=== PATIENT | female | born 1955 ===

== ENCOUNTER 2017-01-01 16:26 | Emergency (ER) | payer BC ==
--- NOTE | 2017-01-01 17:30 | EDM.PDOC ---
ED HPI GENERAL MEDICAL PROBLEM - General Chief Complaint: Lower Extremity Injury/Pain Stated Complaint: L LEG BLEEDING/VERICOSE VEIN Time Seen by Provider: 01/01/17 16:58 Source of Information: Reports: Patient, RN Notes Reviewed - History of Present Illness INITIAL COMMENTS - FREE TEXT/NARRATIVE: 61-year-old lady has come in with bleeding varicosity left distal leg. She states that she has had a varicosity there for some time. She accidentally scratched at it a short time ago with onset of pulsatile bleeding. UnAble to control that at home with pressure and time and therefore have come in for further treatment. They wrapped it with a towel on the way here to the ED and upon arrival to the ED the bleeding has stopped. She is not on any type of blood thinner. She did take several Advil earlier today. No other unusual symptoms at this time. 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 - Related Data Allergies Allergy/AdvReac Type Severity Reaction Status Date / Time No Known Allergies Allergy Verified 01/01/17 16:41 Home Meds: Home Meds Levothyroxine Sodium [Synthroid] 112 mcg PO DAILY 01/01/17 [History] Past Medical History - Past Health History Medical/Surgical History: Denies Medical/Surgical History Social & Family History - Family History Family Medical History: Noncontributory - Tobacco Use Smoking Status *Q: Never Smoker Second Hand Smoke Exposure: No - Caffeine Use Caffeine Use: Reports: Coffee, Soda - Recreational Drug Use Recreational Drug Use: No Review of Systems - Review of Systems Review Of Systems: See Below Constitutional: Reports: No Symptoms Mouth/Throat: Reports: No Symptoms Respiratory: Denies: Shortness of Breath Cardiovascular: Denies: Chest Pain GI/Abdominal: Denies: Abdominal Pain, Nausea, Vomiting Skin: Reports: Other (Bleeding from varicosity left lower legs) Neurological: Reports: No Symptoms ED EXAM, GENERAL - Physical Exam Exam: See Below General Appearance: Alert, No Apparent Distress Head: Atraumatic. No: Facial Swelling Neck: Supple Respiratory/Chest: No Respiratory Distress, Lungs Clear Cardiovascular: Regular Rate, Rhythm Extremities: Other (Inflamed varicosity left lower leg was raised area of punctate swelling area of prior bleeding. No active bleeding at this time. Leg otherwise without swelling warmth or erythema.) Skin Exam: Warm, Dry, Normal Color. No: Ecchymosis Course - Vital Signs Last Recorded V/S: Last Vital Signs Temp 97.9 F 01/01/17 16:43 Pulse 92 01/01/17 16:43 Resp BP 151/100 H 01/01/17 16:43 Pulse Ox 98 01/01/17 16:43 - Re-Assessments/Exams Free Text/Narrative Re-Assessment/Exam: 01/01/17 17:59 Have cleaned areas of surrounding dried blood and applied some quick clot right over the area of prior bleeding and then pressure dressing over that. Discharge instructions as documented Departure - Departure Time of Disposition: 17:28 Disposition: Home, Self-Care 01 Condition: Fair Clinical Impression: Bleeding from varicose vein - Discharge Information Instructions: Varicose Veins Referrals: Catherine Mcnamara NP [Primary Care Provider] - Forms: ED Department Discharge Additional Instructions: Pressure dressing has been applied to your lower leg over the area of bleeding. Try rest and elevate leg as much as you can tonight and tomorrow. Plan to leave the pressure dressing on for 3 days. Avoid further injury to area. Follow- up clinic as needed, if that does not heal over the next couple of weeks consider follow-up with Dr. Godoy, general surgeon with our [facility] medical clinic. Return to ED as needed.
== END 2017-01-01 17:49 | disposition home or self-care (01) ==
LOC: JD.ED 16:26
DX: I83.892 Varicose veins of left lower extremity with other complications (principal); Z79.899 Other long term (current) drug therapy
CPT/HCPCS: 99282; 99283